=== PATIENT | female | born 1985 | race Hispanic/Latino ===

== ENCOUNTER 2017-09-21 10:05 | Emergency (ER) | payer BC ==
[2017-09-21 10:16] VITALS: TEMP 98.6; BMI 31.4
[2017-09-21] MEDS ORDERED: Sodium Chloride 0.9% 1,000 ML IV STA (10:32)
--- NOTE | 2017-09-21 10:40 | ED PDOC ---
Arrival/HPI - General Chief Complaint: Abdominal Pain Time Seen by Provider: 09/21/17 10:10 Historian: Patient - History of Present Illness Narrative History of Present Illness (Text): 09/21/17 10:37 32yr old female presents today with right lower abdominal pain that started around 3am. pt states she developed a sharp stabbing pain to the right lower abdomen that was constant and lasting 2 hours. Pt denies dysuria or urinary frequency. pt denies hematuria. pt denies diarrhea or constipation. pt states she had slight pain in the right lower back. pt denies fevers. pt c/o chills. no vomiting, but c/o nausea. pt states pain lasted 2 hours and she was able to fall back asleep. pt denies dizziness or weakness. pt states she took advil and pain is greatly improved. pt denies . no other complaints. Time/Duration: Other (3am) Symptom Onset: Sudden Symptom Course: Improving Quality: Stabbing Severity Level: 3, 10 Past Medical History - Provider Review Nursing Documentation Reviewed: Yes - Travel History Have you recently traveled outside [place] w/in the past 3 mons?: No - Infectious Disease Hx of Infectious Diseases: None - Reproductive Menopause: No - Cardiac Hx Cardiac Disorders: No - Pulmonary Hx Respiratory Disorders: No - Neurological Hx Neurological Disorder: Yes Other/Comment: vasovagal syncope - HEENT Hx HEENT Disorder: No - Renal Hx Renal Disorder: No - Endocrine/Metabolic Hx Endocrine Disorders: No - Hematological/Oncological Hx Blood Disorders: No - Integumentary Hx Dermatological Disorder: No - Musculoskeletal/Rheumatological Hx Musculoskeletal Disorders: No - Gastrointestinal Hx Gastrointestinal Disorders: No - Genitourinary/Gynecological Hx Genitourinary Disorders: No - Psychiatric Hx Psychophysiologic Disorder: No Hx Substance Use: No - Surgical History Other/Comment: bartholin gland cyst Family/Social History - Physician Review Nursing Documentation Reviewed: Yes Family/Social History: Unknown Family HX Smoking Status: Never Smoked Hx Alcohol Use: Yes Frequency of alcohol use: Socially Hx Substance Use: No Allergies/Home Meds Allergies/Adverse Reactions: Allergies No Known Allergies Allergy (Verified 09/21/17 10:16) Home Medications: Home Meds Medication Instructions Recorded Confirmed Norethindrone-E.estradiol-Iron 1 mg DAILY 09/21/17 09/21/17 [Minastrin 24 Fe Chewable Tab] Review of Systems - Review of Systems Constitutional: absent: Fatigue, Fevers Respiratory: absent: SOB, Cough Cardiovascular: absent: Chest Pain, Palpitations Gastrointestinal: Abdominal Pain, Nausea. absent: Constipation, Diarrhea, Vomiting Genitourinary Female: absent: Dysuria, Frequency, Hematuria, Vaginal Bleeding, Vaginal Discharge Musculoskeletal: Back Pain. absent: Arthralgias, Neck Pain Skin: absent: Rash, Pruritis Neurological: absent: Headache, Dizziness Psychiatric: absent: Anxiety, Depression, Suicidal Ideation Physical Exam Vital Signs Reviewed: Yes Vital Signs Temp Pulse Resp BP Pulse Ox 09/21/17 14:00 79 18 128/74 99 09/21/17 12:21 86 18 131/78 99 09/21/17 10:12 98.6 F 97 H 16 135/85 99 Temperature: Afebrile Blood Pressure: Normal Pulse: Regular Respiratory Rate: Normal Appearance: Positive for: Well-Appearing, Non-Toxic, Comfortable Pain Distress: None Mental Status: Positive for: Alert and Oriented X 3 - Systems Exam Head: Present: Atraumatic Mouth: Present: Moist Mucous Membranes Neck: Present: Normal Range of Motion Respiratory/Chest: Present: Clear to Auscultation, Good Air Exchange. No: Respiratory Distress, Accessory Muscle Use Cardiovascular: Present: Regular Rate and Rhythm, Normal S1, S2. No: Murmurs Abdomen: No: Tenderness, Distention, Peritoneal Signs, Rebound, Guarding Genitourinary/Pelvic Exam: Present: Normal External Genitalia, Vaginal Discharge (minimal white discharge), Adenexal Tenderness (minimal right sided adnexal tenderness), Cervical os Closed, Other (chaparoned by Tamika GIRALDO). No: Vaginal Bleeding, Vaginal Lesions, Cervical Motion Tendernes, Odor Back: Present: Normal Inspection. No: CVA Tenderness, Midline Tenderness, Paraspinal Tenderness Upper Extremity: Present: Normal Inspection, Normal ROM Neurological: Present: GCS=15, Speech Normal Skin: Present: Warm, Dry, Normal Color. No: Rashes Psychiatric: Present: Alert, Oriented x 3 Medical Decision Making ED Course and Treatment: 09/21/17 10:41 Patient is nontoxic well appearing with stable vital signs presenting with rlq abdominal pain pt is refusing medications for pain at this time. CBC: wnl CMP: wnl Lipase: wnl Urinalysis: + trace leukocytes, Ultrasound:FINDINGS: UTERUS: Measures 7.3 x 2.5 x 3.5 cm. Normal in size and appearance. No fibroid or other mass lesion seen. ENDOMETRIUM: Measures 6 mm in diameter. Unremarkable. CERVIX: No cervical abnormality identified. RIGHT OVARY: Measures 3.5 x 2.0 x 3.3 cm. No solid mass. Normal flow. Right-sided cyst measuring 4.1 x 3.8 x 2.7 cm LEFT OVARY: Measures 3.3 x 1.9 x 3.0 cm. No solid mass. Normal flow. FREE FLUID: No significant free fluid noted. OTHER FINDINGS: None. IMPRESSION: Right-sided ovarian cyst. The study is otherwise unremarkable CAT scan:FINDINGS: LOWER THORAX: Unremarkable. LIVER: Unremarkable. No gross lesion or ductal dilatation. GALLBLADDER AND BILE DUCTS: Unremarkable. PANCREAS: Unremarkable. No gross lesion or ductal dilatation. SPLEEN: Unremarkable. ADRENALS: Unremarkable. No mass. KIDNEYS AND URETERS: Unremarkable. No hydronephrosis. No solid mass. VASCULATURE: Unremarkable. No aortic aneurysm. BOWEL: Unremarkable. No obstruction. No gross mural thickening. APPENDIX: Normal appendix. PERITONEUM: Unremarkable. No free fluid. No free air. LYMPH NODES: Unremarkable. No enlarged lymph nodes. BLADDER: Unremarkable. REPRODUCTIVE: There is a 3 x 3.6 cm right ovarian cysts. BONES: No acute fracture. OTHER FINDINGS: None. IMPRESSION: Unremarkable contrast enhanced CT of the abdomen and pelvis. pelvis examination with minimal right sided adnexal tenderness, no CMT, minimal white discharge. will send GC/chylamydia cultures. Patient reassessment: pt resting comfortably; i discussed all results with patient in depth. I discussed findings of ovarian cyst with patient in depth. Advised the patient that if the pain returns if any concerning symptoms worsen she'll return immediately to the hospital. I stressed the importance of follow- up with her bag loader within the next 2 days. I stressed the importance of immediate return the patient develops any worsening pain in the right side of the abdomen. I've advised the patient of her large cyst and the concern that when cyst become large taken cause a torsion. Patient verbalized understanding of discharge instructions and need for immediate followup. case discussed with dr. armstrong. Impression: Abdominal pain, ovarian cyst Increase fluids Motrin every 6 hours as needed for pain Follow up with the COMPRESSOR REPAIRER within the next 2 days Follow up with the Primary care physician within the next 2 days. return IMMEDIATELY if symptoms worsen,persist or if new symptoms develop; high fevers, increasing pain, dizziness, weakness, vomiting, diarrhea or if any other concerning symptoms develop. 09/21/17 15:14 Reassessment Condition: Re-examined, Improved - Lab Interpretations Lab Results: 09/21/17 10:30 09/21/17 10:30 Lab Results 09/21/17 10:30: WBC 10.6, RBC 4.95, Hgb 13.6, Hct 40.7, MCV 82.2, MCH 27.5, MCHC 33.4, RDW 12.8, Plt Count 236, MPV 11.8 H, Gran % 86.1 H, Lymph % (Auto) 11.2 L, Mitchell % (Auto) 2.4, Eos % (Auto) 0.2 L, Baso % (Auto) 0.1, Gran # 9.16 H , Lymph # (Auto) 1.2, Mitchell # (Auto) 0.3, Eos # (Auto) 0.0, Baso # (Auto) 0.01 09/21/17 10:30: Sodium 140, Potassium 4.3, Chloride 103, Carbon Dioxide 23, Anion Gap 18, BUN 14, Creatinine 0.7, Est GFR ( Amer) > 60, Est GFR (Non- Af Amer) > 60, Random Glucose 112 H, Calcium 9.4, Total Bilirubin 0.5, AST 22, ALT 28, Alkaline Phosphatase 62, Total Protein 7.9, Albumin 4.6, Globulin 3.2, Albumin/Globulin Ratio 1.4, Lipase 78 09/21/17 10:30: Urine Color Yellow, Urine Appearance Clear, Urine pH 6.0, Ur Specific Jack 1.025, Urine Protein Negative, Urine Glucose (UA) Negative, Urine Ketones Negative, Urine Blood Negative, Urine Nitrate Negative, Urine Bilirubin Negative, Urine Urobilinogen 0.2, Ur Leukocyte Esterase Trace H, Urine RBC 0 - 2, Urine WBC 0 - 2, Ur Epithelial Cells 3 - 4, Urine Bacteria Trace - RAD Interpretation Radiology Orders: 09/21/17 10:31 ABD & PELVIS IV CONTRAST ONLY [CT] Stat TRANSVAGINAL [US] Stat - Medication Orders Current Medication Orders: Discontinued Medications Sodium Chloride (Sodium Chloride 0.9%) 1,000 mls @ 999 mls/hr IV .Q1H1M STA Stop: 09/21/17 11:32 Last Admin: 09/21/17 10:43 Dose: 999 mls/hr eMAR Start Stop Document 09/21/17 10:43 SF (Rec: 09/21/17 10:43 SF [facility] [id number]) Intravenous Solution Start Date 09/21/17 Start Time 10:43 End Date 09/21/17 End time 11:44 Total Infusion Time 61 Ketorolac Tromethamine (Toradol) 30 mg IVP STAT STA Stop: 09/21/17 14:46 Disposition/Present on Arrival - Present on Arrival Any Indicators Present on Arrival: No History of DVT/PE: No History of Uncontrolled Diabetes: No Urinary Catheter: No History of Decub. Ulcer: No History Surgical Site Infection Following: None - Disposition Have Diagnosis and Disposition been Completed?: Yes Diagnosis: Abdominal pain, Ovarian cyst Disposition: HOME/ ROUTINE Disposition Time: 15:00 Patient Plan: Discharge Condition: GOOD Discharge Instructions (ExitCare): Ovarian Cyst (DC), Ovarian Cysts, Acute Abdomen (Belly Pain), Adult (DC) Additional Instructions: Increase fluids Motrin every 6 hours as needed for pain Follow up with the COMPRESSOR REPAIRER within the next 2 days Follow up with the Primary care physician within the next 2 days. return IMMEDIATELY if symptoms worsen,persist or if new symptoms develop; high fevers, increasing pain, dizziness, weakness, vomiting, diarrhea or if any other concerning symptoms develop. Prescriptions: Ibuprofen [Motrin] 600 mg PO Q6H PRN #20 tab PRN Reason: pain/fever reduction Referrals: Beto Navarro MD [Primary Care Provider] - Follow up with primary Santana Arellano MD [Staff Provider] - Follow up with primary Pau Phan MD [Staff Provider] - Follow up with primary Forms: [facility] (Frisian), WORK NOTE
[2017-09-21 11:09] LABS: BASO # 0.01 K/mm3 (0.0-2.0); BASO % 0.1 % (0.0-3.0); EOS % 0.2 % (1.5-5.0); GRAN # 9.16 (1.4-6.5); GRAN % 86.1 % (50.0-68.0); HEMOGLOBIN 13.6 g/dL (12.0-16.0); LYMPH # 1.2 (1.2-3.4); LYMPH % 11.2 % (22.0-35.0); MEAN CELL VOLUME 82.2 fl (80.0-105.0); MEAN CORPUSCULAR HEMOGLOBIN 27.5 pg (25.0-35.0); MEAN CORPUSCULAR HGB CONC 33.4 g/dl (31.0-37.0); MEAN PLATELET VOLUME 11.8 fl (7.0-11.0); MONO # 0.3 (0.1-0.6); MONO % 2.4 % (1.0-6.0); RBC 4.95 10^6/uL (3.5-6.1); RED CELL DISTRIBUTION WIDTH 12.8 % (11.5-14.5); WHITE BLOOD COUNT 10.6 10^3/ul (4.5-11.0)
[2017-09-21 11:17] LABS: URINE BILIRUBIN NEGATIVE (NEGATIVE); URINE BLOOD NEGATIVE (NEGATIVE); URINE GLUCOSE (UA) NEGATIVE (NEGATIVE); URINE LEUKOCYTE ESTERASE TRACE Leu/uL (NEGATIVE); URINE PROTEIN NEGATIVE mg/dL (<30 mg/dL); URINE UROBILINOGEN 0.2 E.U./dL (<1 E.U./dL)
[2017-09-21 11:18] LABS: URINE APPEARANCE CLEAR (CLEAR); URINE COLOR YELLOW (YELLOW)
[2017-09-21 11:25] LABS: URINE RBC 0 - 2 /hpf (0-2); URINE WBC 0 - 2 /hpf (0-6)
[2017-09-21 11:26] LABS: URINE BACTERIA TRACE (NEG)
[2017-09-21] MEDS ORDERED: Iohexol 350 MG/100 ML VIAL ONE (11:30)
[2017-09-21 12:03] LABS: ALB/GLOB RATIO 1.4 (1.1-1.8); ALBUMIN 4.6 g/dL (3.0-4.8); ALT/SGPT 28 U/L (7-56); AST/SGOT 22 U/L (14-36); BLOOD UREA NITROGEN 14 mg/dL (7-21); CALCIUM 9.4 mg/dL (8.4-10.5); GFR AFRICAN-AMERICAN > 60; GFR NON-AFRICAN AMERICAN > 60; LIPASE 78 U/L (23-300)
--- NOTE | 2017-09-21 13:03 | CT ---
Date of service: 09/21/2017 PROCEDURE: CT Abdomen and Pelvis with contrast HISTORY: abd pain COMPARISON: None. TECHNIQUE: Contrast dose: 100 cc of Omni 350 Radiation dose: Total exam DLP = 916 mGy-cm. This CT exam was performed using one or more of the following dose reduction techniques: Automated exposure control, adjustment of the mA and/or kV according to patient size, and/or use of iterative reconstruction technique. FINDINGS: LOWER THORAX: Unremarkable. LIVER: Unremarkable. No gross lesion or ductal dilatation. GALLBLADDER AND BILE DUCTS: Unremarkable. PANCREAS: Unremarkable. No gross lesion or ductal dilatation. SPLEEN: Unremarkable. ADRENALS: Unremarkable. No mass. KIDNEYS AND URETERS: Unremarkable. No hydronephrosis. No solid mass. VASCULATURE: Unremarkable. No aortic aneurysm. BOWEL: Unremarkable. No obstruction. No gross mural thickening. APPENDIX: Normal appendix. PERITONEUM: Unremarkable. No free fluid. No free air. LYMPH NODES: Unremarkable. No enlarged lymph nodes. BLADDER: Unremarkable. REPRODUCTIVE: There is a 3 x 3.6 cm right ovarian cysts. BONES: No acute fracture. OTHER FINDINGS: None. IMPRESSION: Unremarkable contrast enhanced CT of the abdomen and pelvis.
--- NOTE | 2017-09-21 14:20 | US ---
Date of service: 09/21/2017 HISTORY: pain COMPARISON: None available. TECHNIQUE: Transvaginal FINDINGS: UTERUS: Measures 7.3 x 2.5 x 3.5 cm. Normal in size and appearance. No fibroid or other mass lesion seen. ENDOMETRIUM: Measures 6 mm in diameter. Unremarkable. CERVIX: No cervical abnormality identified. RIGHT OVARY: Measures 3.5 x 2.0 x 3.3 cm. No solid mass. Normal flow. Right-sided cyst measuring 4.1 x 3.8 x 2.7 cm LEFT OVARY: Measures 3.3 x 1.9 x 3.0 cm. No solid mass. Normal flow. FREE FLUID: No significant free fluid noted. OTHER FINDINGS: None. IMPRESSION: Right-sided ovarian cyst. The study is otherwise unremarkable
[2017-09-21 15:37] VITALS: BP 126/75; PULSE 72; RESP 17; O2SAT 100
== END 2017-09-21 15:36 | disposition home or self-care (01) ==
LOC: ED 10:05
DX: R10.31 Right lower quadrant pain (principal); N83.201 Unspecified ovarian cyst, right side
CPT/HCPCS: 74177; 76830; 80053; 81001; 83690; 85025; 87086; 87491; 87591; 96361; 96374; 99285; J1885; J7030; Q9967